=== PATIENT | female | born 1965 | race Caucasian/White ===

== ENCOUNTER → 2017-05-20 | Outpatient (CLI) | payer OTHER | LOC: RAD 13:35 | DX: Z12.31 Encounter for screening mammogram for malignant neoplasm of breast (principal) ==

== ENCOUNTER → 2017-05-31 | Outpatient (CLI) | payer OTHER | LOC: MRI 11:16 | DX: M47.892 Other spondylosis, cervical region (principal) ==

== ENCOUNTER → 2020-05-19 | Outpatient (CLI) | payer BC ==
[~2020-05-19] VITALS: Ht 167.6 cm; Wt 68.0 kg
[~2020-05-19] MED LIST: ARIMIDEX PO; BIOTIN5000 MCG PO; MELOXICAM7.5 MG PO; METOPROLOL SUCC25 M1 PO; VITAMIN C1000 MG PO; VITAMIN D325 MC3 PO
--- NOTE | ~2020-05-19 | HPC ---
[facility] [place] [address] PAIN MANAGEMENT CONSULTATION Name: KHUSHBU AVILA Leeanne Room #: REG ADITYA Kavon.#: [id number] Admission: 05/19/20 Attend Phys: Gary Rogers MD Discharge: Date of : 63 Report #: [id number] CC: Dante Rogers DATE OF SERVICE: 05/19/2020 CHIEF COMPLAINT: Cervicalgia. I was asked to see the patient at the request of Dr. Alicea. She was interested in my thoughts regarding cervical facet arthropathy as a cause for her pain and restricted motion. She has been under treatment by Dr. Ronen Gaming for dystonia receiving trigger point injections followed by 6 sessions of Botox. She is better to some degree, but the treatments do not seem to be lasting as long as she continues to have pain that she scores on a daily basis between 6-8/10. Her descriptors include a continuous, constant, aching pain that is occasional shooting and sharp and stabbing. It occurs when she rotates her head. Only about 15-30 degrees of cervical rotation to the right or left can be achieved without a tightness and muscle tension, developing with increased pain. This is also true at night and if she stays in one place sleeping all night, she is pretty miserable in the morning. She believes it began about 2012 when she began running for exercise. She got up to about 3 miles, but then began noticing neck pain and has been troubled ever since. She has been reluctant to try any nonsteroidal anti-inflammatory drugs because of potential side effects. She has tried naproxen, but found that she did not tolerate it well and caused GI upset, but has taken no other NSAIDs. Muscle relaxants cause her to be sleepy at night, but that causes more pain in the morning, so she has given up on them as well. I do not believe she has had a tricyclic antidepressant trial for chronic pain, which can sometimes be helpful. Studies include an MRI, which was ordered and completed on 04/23/2020. This showed facet arthropathy, [id number] on the right at C2-C3. At C3-C4, there is a mildly bulging protruding disk and bilateral facet arthropathy there as well. Similar findings at C4-C5 and C5-C6. At C6-C7, there is a shallow protrusion of the central disk without stenosis. Dr. Alicea had mentioned to me a possible C1-C2 arthropathy, but there certainly is no evidence from the x-rays at least by report that there is underlying degenerative change. I will look at the films myself and she is going to drop off the disk. I am unable to retrieve them ___ today. MEDICATIONS: Anastrozole, metoprolol, D3, C, and biotin. ALLERGIES: None. PAST MEDICAL HISTORY: History of hypertension and she was diagnosed with breast cancer, undergoing a mastectomy on 11/2019 with reconstructive surgery in March. Pain predated her surgery. SOCIAL HISTORY: She does not smoke, enjoys alcohol 1-2 beverages in a social setting daily. 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 She has been off of her work since November through April. REVIEW OF SYSTEMS: Completed by the patient is positive mostly for numbness and tingling in the right hand involving the thumb, fourth and fifth finger and does not follow a strict dermatomal distribution. Otherwise, negative. PHYSICAL EXAMINATION: GENERAL: Pleasant female, alert and oriented. She has a mask due to COVID restrictions. VITAL SIGNS: Her blood pressure 144/86, heart rate 73, respirations 16, O2 sat is 100% on room air. BMI 24.2. HEENT: Normal. NECK: Reveals pain and restriction with neck rotation, but she has fairly good range of motion with neck flexion and extension. Lateral tilt right and left without exacerbating pain. There is mild tenderness along the paravertebral muscles in the splenius capitis, cervicalis and she has some pain and tenderness just below the occiput bilaterally. Strength in the upper extremities are all good. Sensation normal. Deep tendon reflexes are 2+ biceps, triceps, brachioradialis, 2+ also knees and ankles. IMPRESSION: Cervicalgia. Given the x-ray report, she may have some facet arthropathy at C2-C3, but I do have look at C1-C2 and the higher joints, which are involved with rotational movements. I discussed the challenges of performing diagnostic and/or therapeutic injections at C1-C2. The vertebral artery crosses posteriorly over the joint and there is some risk of penetration there of the vertebral artery. A more straightforward injection is a lateral approach to the C2-C3 facet joint, which can be performed carefully under biplanar fluoroscopic guidance and may provide some diagnostic and therapeutic benefits. Discussed this today with patient and she is interested in trying an injection if we think it may help. She is going to drop off the films. In the interim, I wanted to give a trial to a nonsteroidal anti-inflammatory drug and I have opted for meloxicam 7.5 mg once a day or b.i.d. We discussed extensively side effects, GI, renal and cardiac and she will stop them if she feels that she is having any of the above issues. She will drink plenty of fluids. Followup visit planned for possible C2-C3 facet injection in the near future. By: [id number] Gary Rogers MD /nt
[2020-05-19 12:46] VITALS: BP 144/86
[2020-05-19 12:48] VITALS: BP 144/86
--- NOTE | 2020-05-19 13:05 | NUR ---
Pain Clinic Assessment: 1. History of Osteoarthritis: DENIES History of Rheumatoid Arthritis: DENIES 2. Height: 5 ft. 6 in. 167.6 cm. Weight: 150.0 lb. oz. 68.040 kg. Patient's BMI: 24.2 3. Vital Signs: BP: 144/86 Pulse: 73 Resp: 16 Temp: 02 Sat: 97 ECG Mon: 4. Pain Intensity: 8 5. Fall Risk: Dizziness: N Needs help standing or walking: N Fallen in the last 3 months: N Fall risk comments: 6. Patient on Blood Thinner: None 7. History of Hypertension: Y 8. Opioid Therapy greater than 6 weeks: Opiate Contract Signed: 9. Risk Assessment Tool Provided: 0-LOW 10. Functional Assessment Tool: 11. Recreational Drug Use: Never Drug Type: Tobacco Use: Never Smoker Tobacco Type: Amount or Packs/day: How Many Years: Alcohol Use: Yes Frequency: Daily Quant: 1-2 DRINKS A DAY
== END ==
LOC: PAIN 07:03
PROVIDERS: ATTEND Anesthesiology Pain Medicine
DX: M47.812 Spondylosis without myelopathy or radiculopathy, cervical region (principal); Z88.8 Allergy status to other drugs, medicaments and biological substances; Z79.899 Other long term (current) drug therapy